=== PATIENT | male | born 1985 | race Two or more races ===

== ENCOUNTER 2019-02-17 21:37 | Emergency (ER) | payer SELFPAY ==
[~2019-02-17] VITALS: Ht 177.8 cm; Wt 84.8 kg
[2019-02-17] MEDS ORDERED: IPRATRPIUM/ALBUTEROL 0.5/2.5MG 3 ML NEBU. ONE (21:48)
[2019-02-17 21:57] LABS: BASO # 0.1 x10^3/uL (0.0-0.2); BASO % 1 % (0-3); EOS # 0.9 x10^3/uL (0.0-0.7); EOS % 9 % (0-3); HEMATOCRIT 47.1 % (39.0-53.0); HEMOGLOBIN 16.8 g/dL (13.0-17.5); LYMPH # 2.3 x10^3/uL (1.0-4.8); LYMPH % 23 % (24-48); MEAN CORPUSCULAR HEMOGLOBIN 32 pg (25-35); MEAN CORPUSCULAR HGB CONC 36 g/dL (31-37); MEAN CORPUSCULAR VOLUME 90 fL (79-100); MONO # 0.7 x10^3/uL (0.0-1.1); MONO % 7 % (0-9); NEUT # 6.1 x10^3/uL (1.8-7.7); NEUT % 61 % (31-73); PLATELET COUNT 167 x10^3/uL (140-400); RED BLOOD COUNT 5.23 x10^6/uL (4.30-5.70); RED CELL DISTRIBUTION WIDTH 13.1 % (11.5-14.5)
[2019-02-17] MEDS ORDERED: IV NORMAL SALINE 1000ML BAG 1,000 ML IV SCH (22:00)
[2019-02-17] MEDS ORDERED: diphenhydrAMINE 50 MG/ML VIAL IV ONE (22:00)
[2019-02-17] MEDS ORDERED: IPRATRPIUM/ALBUTEROL 0.5/2.5MG 3 ML NEBU. NEB ONE (22:00)
[2019-02-17] MEDS ORDERED: methylPREDNISolone SOD SUCC PF 125 MG/2 ML VIAL. IV ONE (22:00)
[2019-02-17 22:07] LABS: CALCIUM 9.3 mg/dL (8.5-10.1); POTASSIUM 3.4 mmol/L (3.5-5.1)
[2019-02-17 22:12] LABS: ALBUMIN 4.2 g/dL (3.4-5.0); ALBUMIN/GLOBULIN RATIO 1.1 (1.0-1.7); TOTAL BILIRUBIN 0.8 mg/dL (0.2-1.0); TOTAL PROTEIN 8.2 g/dL (6.4-8.2)
--- NOTE | 2019-02-17 22:20 | RAD ---
PORTABLE CHEST 1V History: Shortness of breath Comparison: None. Findings: No consolidation or pleural effusion. Normal heart size. Impression: 1. No acute cardiopulmonary process. Electronically signed by: John Whipple DO (02/17/2019 10:18 PM) [facility]
[2019-02-17] MEDS ORDERED: SODIUM BICARB NSY 4.2% 5 MEQ/10 ML DISP.SYRIN. NEB ONE (22:30)
--- NOTE | 2019-02-17 22:32 | PHYS DOC ---
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 states that he started wheezing shortly after using that and is now very short of breath. He denies any chest pain. Patient does admit to feeling very anxious. He also admits to cough.[] Review of Systems Review of Systems Constitutional: Denies fever or chills [] Respiratory: Positive cough and shortness of breath [] Cardiovascular: No additional information not addressed in HPI [] GI: Denies abdominal pain, nausea, vomiting or diarrhea [] Integument: Denies rash or skin lesions [] Neurologic: Denies headache, focal weakness or sensory changes [] All other systems were reviewed and found to be within normal limits, except as documented in this note. Current Medications Current Medications Current Medications Medications (Trade) Dose Ordered Sig/Javier Start Time Stop Time Status Last Admin Dose Admin Albuterol/ Ipratropium (Duoneb) 3 ml STK-MED ONCE 02/17/19 21:48 02/17/19 21:48 DC Diphenhydramine HCl (Benadryl) 50 mg 1X ONCE 02/17/19 22:00 02/17/19 22:01 DC 02/17/19 22:10 50 MG Lorazepam (Ativan Inj) 2 mg 1X ONCE 02/17/19 22:00 02/17/19 22:01 DC 02/17/19 22:07 2 MG Methylprednisolone Sodium Succinate (SOLU-Medrol 125MG VIAL) 125 mg 1X ONCE 02/17/19 22:00 02/17/19 22:01 DC 02/17/19 22:07 125 MG Sodium Bicarbonate (Sodium Bicarb Nsy 4.2% Syring) 2.5 meq 1X ONCE 02/17/19 22:30 02/17/19 22:31 DC 02/17/19 22:05 2.5 MEQ Sodium Chloride 1,000 ml @ 1,000 mls/hr Q1H 02/17/19 22:00 02/17/19 22:59 DC 02/17/19 22:10 1,000 MLS/HR Allergies Allergies Allergies Coded Allergies Type Severity Reaction Last Updated Verified No Known Drug Allergies 02/17/19 No Physical Exam Physical Exam Constitutional: Well developed, well nourished, appears moderately anxious, non- toxic appearance. [] HENT: Normocephalic, atraumatic, bilateral external ears normal, oropharynx moist, no oral exudates, nose normal. [] Eyes: PERRLA, EOMI, conjunctiva normal, no discharge. [] Neck: Normal range of motion, no tenderness, supple. [] Cardiovascular:Heart rate regular rhythm, no murmur [] Lungs & Thorax: Fine inspiratory wheezes are noted bilaterally to auscultation [] Abdomen: Bowel sounds normal, soft, no tenderness. [] Skin: Warm, dry, no erythema, no rash. [] Extremities: No tenderness, no cyanosis, no clubbing, ROM intact. [] Neurologic: Alert and oriented X 3, no focal deficits noted. [] Current Patient Data Vital Signs Vital Signs Date Time Temp Pulse Resp B/P (MAP) Pulse Ox O2 Delivery O2 Flow Rate FiO2 02/17/19 22:06 97 Room Air 02/17/19 21:37 98.3 78 24 149/61 (90) 98.3 Lab Values Laboratory Tests Test 02/17/19 21:45 White Blood Count 10.0 x10^3/uL (4.0-11.0) Red Blood Count 5.23 x10^6/uL (4.30-5.70) Hemoglobin 16.8 g/dL (13.0-17.5) Hematocrit 47.1 % (39.0-53.0) Mean Corpuscular Volume 90 fL (79-100) Mean Corpuscular Hemoglobin 32 pg (25-35) Mean Corpuscular Hemoglobin Concent 36 g/dL (31-37) Red Cell Distribution Width 13.1 % (11.5-14.5) Platelet Count 167 x10^3/uL (140-400) Neutrophils (%) (Auto) 61 % (31-73) Lymphocytes (%) (Auto) 23 % (24-48) L Monocytes (%) (Auto) 7 % (0-9) Eosinophils (%) (Auto) 9 % (0-3) H Basophils (%) (Auto) 1 % (0-3) Neutrophils # (Auto) 6.1 x10^3/uL (1.8-7.7) Lymphocytes # (Auto) 2.3 x10^3/uL (1.0-4.8) Monocytes # (Auto) 0.7 x10^3/uL (0.0-1.1) Eosinophils # (Auto) 0.9 x10^3/uL (0.0-0.7) H Basophils # (Auto) 0.1 x10^3/uL (0.0-0.2) Sodium Level 140 mmol/L (136-145) Potassium Level 3.4 mmol/L (3.5-5.1) L Chloride Level 101 mmol/L (98-107) Carbon Dioxide Level 30 mmol/L (21-32) Anion Gap 9 (6-14) Blood Urea Nitrogen 8 mg/dL (8-26) Creatinine 1.0 mg/dL (0.7-1.3) Estimated GFR (Cockcroft-Gault) 85.0 BUN/Creatinine Ratio 8 (6-20) Glucose Level 106 mg/dL (70-99) H Calcium Level 9.3 mg/dL (8.5-10.1) Total Bilirubin 0.8 mg/dL (0.2-1.0) Aspartate Amino Transferase (AST) 67 U/L (15-37) H Alanine Aminotransferase (ALT) 147 U/L (16-63) H Alkaline Phosphatase 65 U/L (46-116) Total Protein 8.2 g/dL (6.4-8.2) Albumin 4.2 g/dL (3.4-5.0) Albumin/Globulin Ratio 1.1 (1.0-1.7) Laboratory Tests 02/17/19 21:45 Laboratory Tests 02/17/19 21:45 EKG EKG [] Interpretation Time: EKG demonstrates normal sinus rhythm with rate of 61. Radiology/Procedures Radiology/Procedures [] Impressions: PROCEDURE: PORTABLE CHEST 1V PORTABLE CHEST 1V History: Shortness of breath Comparison: None. Findings: No consolidation or pleural effusion. Normal heart size. Impression: 1. No acute cardiopulmonary process. Electronically signed by: John Whipple DO (02/17/2019 10:18 PM) [facility] Course & Med Decision Making Course & Med Decision Making Pertinent Labs and Imaging studies reviewed. (See chart for details) [] Dragon Disclaimer Dragon Disclaimer This electronic medical record was generated, in whole or in part, using a voice recognition dictation system. Departure Departure Impression: Primary Impression: Inhalation injury due to chemical Disposition: 01 HOME, SELF-CARE Condition: STABLE Referrals: NO PCP (PCP) Patient Instructions: Chemical Inhalation YVETTE RAWLS Jr., DO Feb 17, 2019 22:32
[2019-02-17 23:30] VITALS: BP 120/65
--- NOTE | 2019-02-18 07:01 | EKG ---
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
== END 2019-02-17 23:50 | disposition home or self-care (01) ==
LOC: ER 21:37
DX: T54.91XA Toxic effect of unspecified corrosive substance, accidental (unintentional), initial encounter (principal); T65.891A Toxic effect of other specified substances, accidental (unintentional), initial encounter; R06.02 Shortness of breath; R05 Cough; F41.9 Anxiety disorder, unspecified; Y92.89 Other specified places as the place of occurrence of the external cause
CPT/HCPCS: 36415; 71045; 80053; 85025; 93005; 94640; 96374; 96375; 99285; J1200; J2060; J2930; J7030; J7620

== ENCOUNTER 2021-09-08 16:53 | Emergency (ER) | payer SELFPAY ==
[~2021-09-08] VITALS: Ht 180.3 cm; Wt 69.0 kg
[2021-09-08] MEDS ORDERED: LIDOCAINE 1%/EPI 1:100,000 20 ML VIAL. INJ ONE (17:30)
[2021-09-08] MEDS ORDERED: SMZ/TMP 800/160MG TABLET. PO ONE (17:30)
[2021-09-08] MEDS ORDERED: DIPHTH,PERTUSS(ACELL),TET TOX 0.5 ML DISP.SYRIN. VAX IM ONE (17:30)
--- NOTE | 2021-09-08 17:59 | RAD ---
CT scan of the pelvis without contrast 09/08/2021 CLINICAL HISTORY: Infection in the region of the right buttocks. TECHNIQUE: Unenhanced, contiguous, 0.625 mm axial sections were obtained through the pelvis. 3 mm rec onstructed sagittal, axial and coronal images were obtained. One or more of the following individualized dose reduction techniques were utilized for this study: 1. Automated exposure control. 2. Adjustment of the mA and/or kV according to patient size. 3. Use of iterative reconstruction technique. FINDINGS: Skin thickening is seen involving the right gluteal region. Increased density is seen withi n the adjacent fat. These findings are consistent with a cellulitis. No fluid collection is seen to s uggest evidence of an abscess. The urinary bladder is distended with urine. No free fluid is seen. Mild atherosclerotic calcificatio n of the distal abdominal aorta is seen. The osseous structures are grossly intact. IMPRESSION: Findings are seen consistent with a cellulitis involving the right gluteal region. No abs cess is seen. Electronically signed by: Trae Ang MD (09/08/2021 5:57 PM) [id number]
--- NOTE | 2021-09-08 18:05 | PHYS DOC ---
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 Patient reports he had a similar one near the same spot about 2 weeks ago that he popped and it healed on its own. Patient states that this 1 is becoming more painful and bigger and does not seem to be draining as well. Patient reports an 8 out of 10 pain this morning when he woke up, states that he self treats his pain with street fentanyl. Reports his last street fentanyl dose was this morning. Patient denies numbness or tingling down his lower extremities, denies fever or chills. Denies nausea, vomiting, or diarrhea. Denies abdominal discomfort. Denies chest pains. Patient denies allergies to medications, states he does not take any prescription medications at home. Review of Systems: Review of Systems: 14 body systems of review of systems have been reviewed. See HPI for pertinent positives and negative responses, otherwise all other systems are negative, nonpertinent or noncontributory. Constitutional: Negative except as outlined in HPI above. Skin: Negative except as outlined in HPI above. Eyes: Negative except as outlined in HPI above. HENT: Negative except as outlined in HPI above. Respiratory: Negative except as outlined in HPI above. Cardiovascular: Negative except as outlined in HPI above. GI: Negative except as outlined in HPI above. : Negative except as outlined in HPI above. Musculoskeletal: Negative except as outlined in HPI above. Integument: Negative except as outlined in HPI above. Neurologic: Negative except as outlined in HPI above. Endocrine: Negative except as outlined in HPI above. Lymphatic: Negative except as outlined in HPI above. Psychiatric: Negative except as outlined in HPI above. Heart Score: C/O Chest Pain: No Risk Factors: Risk Factors: DM, Current or recent (<one month) smoker, HTN, HLP, family history of CAD, obesity. Risk Scores: Score 0 - 3: 2.5% MACE over next 6 weeks - Discharge Home Score 4 - 6: 20.3% MACE over next 6 weeks - Admit for Clinical Observation Score 7 - 10: 72.7% MACE over next 6 weeks - Early Invasive Strategies Current Medications: Current Medications Medications (Trade) Dose Ordered Sig/Javier Start Time Stop Time Status Last Admin Dose Admin Diphtheria/ Tetanus/Acell Pertussis (Boostrix) 0.5 ml ONCE ONCE 09/08/21 17:30 09/08/21 17:31 DC 09/08/21 17:49 0.5 ML Lidocaine/ Epinephrine (LIDOCAINE 1%-EPI 1:100,000 Multi-Dose) 20 ml 1X ONCE 09/08/21 17:30 09/08/21 17:31 DC 09/08/21 17:47 20 ML Trimethoprim/ Sulfamethoxazole (Bactrim Ds) 1 tab 1X ONCE 09/08/21 17:30 09/08/21 17:31 DC 09/08/21 17:47 1 TAB Allergies: Allergies: Allergies Coded Allergies Type Severity Reaction Last Updated Verified No Known Drug Allergies 09/08/21 No Physical Exam: PE: Constitutional: Well developed, well nourished, no acute distress, non-toxic appearance. 36-year-old male in no apparent distress. HENT: Normocephalic, atraumatic. Eyes: Conjunctiva normal, no discharge. Neck: Normal range of motion, no stridor. Cardiovascular: No cyanosis appreciated, distal cap refill less than 2 seconds. Lungs & Thorax: Patient is in no respiratory distress, no audible adventitious lung sounds appreciated. Abdomen: Nontender, no abnormalities noted. Skin: Warm, dry, no erythema, no rash. Except for right buttock center aspect o f gluteal skin surfaces has a 3 cm ulceration area of draining with a 9 x 10 cm area of erythematous induration. No erythematous streaking appreciated. No fluctuance appreciated to palpation. Back: No tenderness, no deformities. Extremities: No tenderness, no cyanosis, no clubbing, ROM intact, no edema. Distal cap refill less than 2 seconds all extremities, 2+ radial pulses bila terally, 2+ dorsalis pedis pulse bilaterally. Neurologic: Alert and oriented X 3, normal motor function, normal sensory function, no focal deficits noted. Psychologic: Affect normal, judgement normal, mood normal. Current Patient Data: Vital Signs: Vital Signs Date Time Temp Pulse Resp B/P (MAP) Pulse Ox O2 Delivery O2 Flow Rate FiO2 09/08/21 17:50 81 16 109/55 (73) 99 09/08/21 16:58 99.4 Room Air 99.4 EKG: EKG: [] Radiology/Procedures: Radiology/Procedures: REASON: Right buttocks infection study PROCEDURE: CT PELVIS WO CONTRAST CT scan of the pelvis without contrast 09/08/2021 CLINICAL HISTORY: Infection in the region of the right buttocks. TECHNIQUE: Unenhanced, contiguous, 0.625 mm axial sections were obtained through the pelvis. 3 mm reconstructed sagittal, axial and coronal images were obtained. One or more of the following individualized dose reduction techniques were utilized for this study: 1. Automated exposure control. 2. Adjustment of the mA and/or kV according to patient size. 3. Use of iterative reconstruction technique. FINDINGS: Skin thickening is seen involving the right gluteal region. Increased density is seen within the adjacent fat. These findings are consistent with a cellulitis. No fluid collection is seen to suggest evidence of an abscess. The urinary bladder is distended with urine. No free fluid is seen. Mild atherosclerotic calcification of the distal abdominal aorta is seen. The osseous structures are grossly intact. IMPRESSION: Findings are seen consistent with a cellulitis involving the right gluteal region. No abscess is seen. Electronically signed by: Trae Ang MD (09/08/2021 5:57 PM) [id number] Course & Med Decision Making: Course & Med Decision Making Pertinent Labs and Imaging studies reviewed. (See chart for details) 36-year-old male, vital signs reviewed, presents emergency department compl aining of skin infection to right buttocks, physical examination consistent with cellulitis, will CT area to rule out drainable abscess. Will start on p.o. antibiotics. Patient denies need for pain medication. CT pelvis without contrast reveals with cellulitis without abscess. Discussed findings with patient, marked erythematous borders with skin marker, discussed with patient will discharged home with prescription for antibiotic Keflex regimen 4 times a day x10 days, reviewed side effects of medication, discussed daily cleansing's and sitz bath's, will give work excuse for 2 days, return to the emergency department for worsening symptoms, follow-up primary care this week for reevaluation of wound. Patient gave verbal understanding of and is amenable to ED discharge planning. Discussed with the patient all findings and diagnostic testing as well as the need to follow-up with their primary care provider for further evaluation and treatment or return to the ED if any new or worsening symptoms. Strict return precautions were also discussed at length, the patient voiced understanding and agreement with the discharge planning. The patient was nontoxic in appearance, in no apparent distress, and hemodynamically stable at the time of disposition. Dragon Disclaimer: Dragon Disclaimer: This electronic medical record was generated, in whole or in part, using a voice recognition dictation system. Departure Departure Impression: Primary Impression: Cellulitis of right buttock Disposition: HOME / SELF CARE / HOMELESS Condition: GOOD Referrals: NO PCP (PCP) Patient Instructions: Cellulitis Additional Instructions: You were seen today in the emergency department for a skin infection of your right buttocks. You were started on an oral antibiotic today in the emergency department, I have prescribed for you both an oral antibiotic and a pain medication, please take as directed until complete. As we discussed, I have marked the borders of your infection on your buttocks, if worsening please return to the emergency department for consideration of IV antibiotics and admission to the hospital. Please follow-up with your primary care physician this week for reevaluation of wound. Cleanse daily with soap and water, sitting in a warm bath once or twice a day to help relieve symptoms. Thank you for visiting our Emergency Department. It was a pleasure taking care of you today in the emergency department and we appreciate you trusting us with your care. If any additional problems come up don't hesitate to return to visit us. Please follow up with your primary care provider so they can plan additional care if needed and know about the problem that you had. If symptoms worsen come back to the Emergency Department. Any concerning symptoms that start such as chest pain, shortness of air, weakness or numbness on one side of the body, running high fevers or any other concerning symptoms return to the ER. [facility] [address] [place] [address] [facility] [address] [place] [address] [facility] [address] [facility] [place] [address] [facility] [address] [place] [address] [facility] [address] [place] [address] [facility] [address] [place] [address] [facility] [address] [place] [address] [facility] [address] [place] [address] [facility] [address] [place] [address] [facility] [address] [place] [address] Scripts Ibuprofen (IBUPROFEN) 600 Mg Tablet 600 MG PO PRN Q6HRS PRN for INFLAMMATION, #30 TAB 0 Refills Prov: ARNOLDO WINKLER APRN 09/08/21 Cephalexin (KEFLEX) 500 Mg Capsule 1 CAP PO QID for skin infection, #40 CAP 0 Refills Prov: ARNOLDO WINKLER APRN 09/08/21 Bacitracin/Polymyxin B Sulfate (POLYSPORIN TOPICAL OINT) 28.3 Gm Oint...g. 1 KOSTA TP TID for WOUND CARE, #1 EACH 0 Refills DIRECTED BY PHYSICIAN Prov: ARNOLDO WINKLER APRN 09/08/21 ARNOLDO WINKLER APRN September 08, 2021 18:05
[2021-09-08] MEDS ORDERED: CEPHALEXIN 250 MG CAPSULE. PO STA (18:06)
[2021-09-08] MEDS ORDERED: CEPH500C PO (18:30)
[2021-09-08] MEDS ORDERED: BACI28.34 TP (18:30)
[2021-09-08] MEDS ORDERED: IBUP-1007 PO (18:30)
[2021-09-08 18:32] VITALS: BP 104/55
== END 2021-09-08 18:38 | disposition home or self-care (01) ==
LOC: ER 16:53
DX: L02.31 Cutaneous abscess of buttock (principal); F17.200 Nicotine dependence, unspecified, uncomplicated
CPT/HCPCS: 72192; 90471; 90715; 96372; 99284; J3490